=== PATIENT | male | born 1965 | race American Indian/Alaskan Native ===

== ENCOUNTER 2018-11-06 14:52 | Emergency (ER) | payer OTHER ==
--- NOTE | 2018-11-06 18:26 | Emergency Department Report ---
ED Allergic Reaction HPI - General Chief complaint: Chest Pain Stated complaint: SORE THROAT,SWELLING BODY/FACE Time Seen by Provider: 11/06/18 18:08 Source: patient Mode of arrival: Ambulatory Limitations: No Limitations - History of Present Illness MD Complaint: allergic reaction (4-year-old male diagnosed with pharyngitis, started on Augmentin on this past Saturday and started on Augmentin. He developed some some diarrhea diarrhea and gastrointestinal changes which are improved with his doctor medications. Also, he did develop a diffuse, red, pruritic burning rash to his body. He last took the medication on yesterday reports no shortness of breath, no dyspnea, no odynophagia or dysphagia) Exposure: medication Symptoms: rash - Related Data Previous Rx's Medication Instructions Recorded Last Taken Type Azithromycin [Zithromax] 500 mg PO QDAY #3 tablet 11/06/18 Unknown Rx hydrOXYzine HCL [Atarax] 25 mg PO Q6HR PRN #20 tablet 11/06/18 Unknown Rx predniSONE [Deltasone] 20 mg PO QDAY #5 tab 11/06/18 Unknown Rx Allergies Allergy/AdvReac Type Severity Reaction Status Date / Time amoxicillin [From Augmentin] Allergy Itching Verified 11/06/18 15:03 clavulanic acid Allergy Itching Verified 11/06/18 15:03 [From Augmentin] ED Review of Systems ROS: Stated complaint: SORE THROAT,SWELLING BODY/FACE Other details as noted in HPI Constitutional: denies: chills, fever Eyes: denies: eye pain, eye discharge, vision change ENT: denies: ear pain, throat pain Respiratory: denies: cough, shortness of breath, wheezing Cardiovascular: denies: chest pain, palpitations Endocrine: no symptoms reported Gastrointestinal: denies: abdominal pain, nausea, diarrhea Genitourinary: denies: urgency, dysuria Musculoskeletal: denies: back pain, joint swelling, arthralgia Skin: rash. denies: lesions Neurological: denies: headache, weakness, paresthesias Psychiatric: denies: anxiety, depression Hematological/Lymphatic: denies: easy bleeding, easy bruising ED Past Medical Hx - Past Medical History Previous Medical History?: No - Surgical History Past Surgical History?: No - Social History Smoking Status: Never Smoker Substance Use Type: None - Medications Home Medications: Home Medications Medication Instructions Recorded Confirmed Last Taken Type Azithromycin [Zithromax] 500 mg PO QDAY #3 tablet 11/06/18 Unknown Rx hydrOXYzine HCL [Atarax] 25 mg PO Q6HR PRN #20 tablet 11/06/18 Unknown Rx predniSONE [Deltasone] 20 mg PO QDAY #5 tab 11/06/18 Unknown Rx ED Physical Exam - General Limitations: No Limitations General appearance: alert, in no apparent distress - Head Head exam: Present: atraumatic, normocephalic - Eye Eye exam: Present: normal appearance - ENT ENT exam: Present: mucous membranes moist, other (Has some mild mild erythema. There is no edema, no stridor. Tongue and uvula midline, normal size) - Neck Neck exam: Present: normal inspection - Respiratory Respiratory exam: Present: normal lung sounds bilaterally. Absent: respiratory distress - Cardiovascular Cardiovascular Exam: Present: regular rate, normal rhythm. Absent: systolic murmur, diastolic murmur, rubs, gallop - GI/Abdominal GI/Abdominal exam: Present: soft, normal bowel sounds - Rectal Rectal exam: Present: deferred - Extremities Exam Extremities exam: Present: normal inspection - Back Exam Back exam: Present: normal inspection - Neurological Exam Neurological exam: Present: alert, oriented X3 - Psychiatric Psychiatric exam: Present: normal affect, normal mood - Skin Skin exam: Present: warm, dry, intact, normal color, erythema (diffuse erythema, no no local hives, no bruising, no fissures). Absent: rash ED Course Vital Signs 11/06/18 15:03 Temperature 98.1 F Pulse Rate 93 H Respiratory 18 Rate Blood Pressure 149/81 O2 Sat by Pulse 98 Oximetry ED Medical Decision Making - EKG Data EKG shows normal: sinus rhythm Rate: normal - EKG Data Interpretation: normal EKG - Differential Diagnosis scarlet fever, allergic reaction, viral exanthem Critical care attestation.: If time is entered above; I have spent that time in minutes in the direct care of this critically ill patient, excluding procedure time. ED Disposition Clinical Impression: Allergic reaction caused by a drug, Rash, Pharyngitis Disposition: TO HOME OR SELFCARE Is pt being admited?: No Does the pt Need Aspirin: No Condition: Stable Instructions: Urticaria (ED), Antibiotic Medication Allergy (ED), Pharyngitis (ED) Referrals: NAVA ALBA MD [Primary Care Provider] - 3-5 Days
[2018-11-06 19:21] VITALS: BP 164/54
== END 2018-11-06 19:19 | disposition home or self-care (01) ==
LOC: ED 14:52
DX: J02.9 Acute pharyngitis, unspecified (principal); T36.0X5A Adverse effect of penicillins, initial encounter; Z88.1 Allergy status to other antibiotic agents; Y92.89 Other specified places as the place of occurrence of the external cause
CPT/HCPCS: 93005; 93010; 99282